=== PATIENT | female | born 1970 | race Caucasian/White ===

== ENCOUNTER 2018-04-24 02:01 | Emergency (ER) | payer BC ==
[~2018-04-24] VITALS: Ht 162.6 cm; Wt 76.7 kg
[2018-04-24 02:05] VITALS: BP 143/98; Ht 162.6 cm; Wt 76.7 kg
== END 2018-04-24 03:40 | disposition home or self-care (01) ==
LOC: ED 02:01
DX: J02.9 Acute pharyngitis, unspecified (principal); Z98.890 Other specified postprocedural states; Z98.82 Breast implant status
CPT/HCPCS: J7512